=== PATIENT | male | born 1965 | race Caucasian/White ===

== ENCOUNTER 2018-12-29 09:59 | Emergency (ER) | payer BC, OTHER ==
--- NOTE | 2018-12-29 10:33 | ER Document Report ---
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 He did a "tuck and roll "the patient denies hitting his head or neck or have any loss of consciousness complains no head or neck pain. Denies chest pain or shortness of breath denies abdominal pain. Denies back pain. States his right ankle was hurting him. Describes it as severe and swollen. Hurts worse when he tries to bear weight. Denies any other complaints. Past Medical History - Social History Smoking Status: Unknown if Ever Smoked Family History: None Review of Systems - Review of Systems Constitutional: denies: Chills, Fever Cardiovascular: denies: Chest pain Musculoskeletal: Joint pain Skin: denies: Lesions, Rash Neurological/Psychological: denies: Headaches -: Yes All other systems reviewed and negative Physical Exam - Vital signs Vitals: Temp Pulse Resp BP Pulse Ox 97.8 F 43 L 16 126/72 H 96 12/29/18 10:15 12/29/18 10:15 12/29/18 10:15 12/29/18 10:15 12/29/18 10:15 - Notes Notes: GENERAL_APPEARANCE: well_nourished, alert, cooperative VITALS: reviewed, see vital signs table. HEAD: no_swelling\\tenderness on the head. EYES: PERRL, EOMI, conjunctiva_clear. NOSE: no_nasal_discharge. MOUTH: (-)decreased moisture. THROAT: no_tonsilar_inflammation, no_airway_obstruction. no_lymphadenopathy NECK: supple, no_neck_tenderness, (-)thyromegaly. BACK: no_back_tenderness. CHEST_WALL: no_chest_tenderness. LUNGS: no_wheezing, no_rales, no_rhonchi, (-)accessory muscle use, good air exchange bilateral. HEART: normal_rate, normal_rhythm, normal_S1, normal_S2, (-)S3, (-)S4, no_murmur, no_rub. ABDOMEN: normal_BS, soft, no_abd_tenderness, (-)guarding, (-)rebound, no_organomegaly, no_abd_masses. EXTREMITIES: Right ankle is swollen at the lateral malleolus there is no obvious deformity strong dorsalis pedis pulses noted no open wounds. Tender to touch laterally. SKIN: warm, dry, good_color, no_rash. MENTAL_STATUS: speech_clear, oriented_X_3, normal_affect, responds_appropriately to questions. NEURO: Neg Motor or Sensory Deficits on exam, CN 2-12 intact, DTR 2+ symmetric x 4, No cerbellar signs Course - Re-evaluation Re-evalutation: 12/29/18 10:32 53-year-old male who fell off a roof and twisted his ankle. He sustained no other injuries no head or neck injuries no chest or abdominal injuries. Complains of no back pain. We will get an x-ray of the right ankle. I removed his collar is clinically clear. He is neurologically intact without focal deficit. 12/29/18 13:36 Did an x-ray of his back and there is no fractures. His chronic changes he does have a mild calcaneus fracture. There is no open wounds. We will place the patient in a posterior splint make him nonweightbearing. We will have him follow-up with orthopedics outpatient. Will prescribe him some pain medicine and Flexeril. - Vital Signs Vital signs: Temp Pulse Resp BP Pulse Ox 97.8 F 43 L 15 126/72 H 96 12/29/18 10:15 12/29/18 10:15 12/29/18 12:00 12/29/18 10:15 12/29/18 10:15 - Diagnostic Test Radiology reviewed: Reports reviewed Discharge - Discharge Clinical Impression: Fall Qualifiers: Encounter type: initial encounter Qualified Code(s): W19.XXXA - Unspecified fall, initial encounter Calcaneus fracture, right Qualifiers: Encounter type: initial encounter Calcaneus location: unspecified portion of calcaneus Fracture type: closed Condition: Good Disposition: HOME, SELF-CARE Instructions: Fracture Calcaneus ([facility]) Additional Instructions: Nonweightbearing on that foot. Use the crutches. Call for an appointment to be evaluated next week. You may need surgery it is up to the orthopedist that she see. Call for an appointment today Prescriptions: Cyclobenzaprine HCl [Flexeril 10 mg Tablet] 10 mg PO TIDP PRN #30 tab PRN Reason: Oxycodone HCl/Acetaminophen [Percocet 5-325 mg Tablet] 1 - 2 tab PO Q4H PRN #30 tablet PRN Reason: Referrals: RODRIGO SANTOS MD [ACTIVE STAFF] - Follow up as needed HARSHA JORDAN MD [ACTIVE STAFF] - Follow up as needed
--- NOTE | 2018-12-29 10:59 | RADIOLOGY REPORT (SQ) ---
EXAM DESCRIPTION: ANKLE RIGHT COMPLETE COMPLETED DATE/TIME: 12/29/2018 10:41 am REASON FOR STUDY: fall / deformity COMPARISON: None. NUMBER OF VIEWS: Three views. TECHNIQUE: AP, lateral, and oblique radiographic images acquired of the right ankle. LIMITATIONS: None. FINDINGS: MINERALIZATION: Normal. BONES: There is a fracture of the calcaneus. The tibia, fibula, and talus appear to be intact. JOINTS: No effusions. SOFT TISSUES: No soft tissue swelling. No foreign body. OTHER: No other significant finding. IMPRESSION: Calcaneal fracture. TECHNICAL DOCUMENTATION: JOB ID: [id number] [employer]- All Rights Reserved Reading location - IP/workstation name: [email or web address]
[2018-12-29] MEDS ORDERED: ONDANSETRON HCL INJ/PF 4 MG/2 ML SDV IV ONE (11:19)
[2018-12-29] MEDS ORDERED: MORPHINE SULFATE 10 MG/ML INJ IV ONE (11:19)
--- NOTE | 2018-12-29 13:07 | RADIOLOGY REPORT (SQ) ---
EXAM DESCRIPTION: L SPINE WHOLE COMPLETED DATE/TIME: 12/29/2018 12:50 pm REASON FOR STUDY: fell off roof COMPARISON: None. NUMBER OF VIEWS: Five views including obliques. TECHNIQUE: AP, lateral, oblique, and sacral radiographic images acquired of the lumbar spine. LIMITATIONS: None. FINDINGS: MINERALIZATION: Normal. SEGMENTATION: Normal. No transitional anatomy. ALIGNMENT: Grade 1 anterolisthesis of L5 relative to S1 on the basis of probable pars interarticulari s defects, not well characterized on oblique imaging. VERTEBRAE: Maintained height. No fracture or worrisome bone lesion. DISCS: Multilevel disc space narrowing with osteophytes. POSTERIOR ELEMENTS: Facet arthropathy is present. HARDWARE: None in the spine. PARASPINAL SOFT TISSUES: Normal. PELVIS: Intact as visualized. No fractures or worrisome bone lesions. SI joints intact. OTHER: No other significant finding. IMPRESSION: No evidence of acute osseous injury. Background of spondylotic changes with probable L5 pars interarticularis defects resulting in grade 1 anterolisthesis at the lumbosacral junction. TECHNICAL DOCUMENTATION: JOB ID: [id number]- All Rights Reserved Reading location - IP/workstation name: [email or web address]
[2018-12-29 14:47] VITALS: BP 105/61
== END 2018-12-29 14:47 | disposition home or self-care (01) ==
LOC: ER 09:59
DX: S92.001A Unspecified fracture of right calcaneus, initial encounter for closed fracture (principal); W13.2XXA Fall from, out of or through roof, initial encounter; Y93.H3 Activity, building and construction; Y99.0 Civilian activity done for income or pay
CPT/HCPCS: 99283; 96374; 96375; 73610; 72110; J2270; J2405

== ENCOUNTER 2019-01-05 06:06 | Day surgery (SDC) | payer BC ==
[~2019-01-05 06:06] MED LIST: CEFAZOLIN 2 GM/D5W RTU 2 GM/50 ML RTUPB IV PRN
[2019-01-05] MEDS ORDERED: FENTANYL CITRATE INJ/PF 100 MCG/2 ML AMPUL ONE ×3 (06:28→10:25)
[2019-01-05] MEDS ORDERED: MIDAZOLAM 2 MG/2 ML INJ ONE ×2 (06:28→08:26)
[2019-01-05] MEDS ORDERED: ONDANSETRON HCL INJ/PF 4 MG/2 ML SDV ONE ×2 (06:29→21:02)
[2019-01-05] MEDS ORDERED: PROPOFOL INJ 200 MG/20 ML VIAL IV ONE ×2 (06:29→08:26)
[2019-01-05 06:49] LABS: ABSOLUTE EOSINOPHILS # (AUTO) 0.3 10^3/uL (0.0-0.6); ABSOLUTE LYMPHOCYTES (AUTO) 1.6 10^3/uL (0.5-4.7); ABSOLUTE MONOCYTES (AUTO) 0.7 10^3/uL (0.1-1.4); BASOPHILS % (AUTO) 0.4 % (0-2); EOSINOPHILS % (AUTO) 3.3 % (0-6); HEMATOCRIT 45.7 % (37.9-51.0); HEMOGLOBIN 15.8 g/dL (13.5-17.0); LYMPHOCYTES % (AUTO) 18.6 % (13-45); MEAN CORPUSCULAR HEMOGLOBIN 29.7 pg (27.0-33.4); MEAN CORPUSCULAR HGB CONC 34.5 g/dL (32.0-36.0); MEAN CORPUSCULAR VOLUME 86 fl (80-97); MONOCYTES % (AUTO) 8.5 % (3-13); PLATELET COUNT 257 10^3/uL (150-450); RED CELL DISTRIBUTION WIDTH 12.5 % (11.5-14.0); SEGMENTED NEUTROPHILS % (AUTO) 69.2 % (42-78); TOTAL CELLS COUNTED % (AUTO) 100 %; WHITE BLOOD COUNT 8.6 10^3/uL (4.0-10.5)
[2019-01-05] MEDS ORDERED: CEFAZOLIN 2 GM/D5W RTU 2 GM/50 ML RTUPB IV ONE (06:54)
--- NOTE | 2019-01-05 06:57 | RADIOLOGY REPORT (SQ) ---
EXAM DESCRIPTION: XR CHEST 1 VIEW COMPLETED DATE/TME: 01/05/2019 00:00 CLINICAL HISTORY: 53 years Male, PREOP COMPARISON: None. NUMBER OF VIEWS/TECHNIQUE: 1/AP FINDINGS: Adequate lung volume, clear parenchyma, normal cardiac silhouette, and intact bony thorax. IMPRESSION: No acute cardiopulmonary findings.
[2019-01-05 07:00] LABS: ANION GAP 14 (5-19); BLOOD UREA NITROGEN 15 mg/dL (7-20); CALCIUM 9.1 mg/dL (8.4-10.2); CARBON DIOXIDE 24 mmol/L (22-30); CHLORIDE 105 mmol/L (98-107); GLUCOSE 94 mg/dL (75-110); POTASSIUM 3.9 mmol/L (3.6-5.0); SODIUM 142.9 mmol/L (137-145)
[2019-01-05 07:04] LABS: APPEARANCE,URINE SLIGHTLY-CLOUDY; BILIRUBIN,URINE NEGATIVE (NEGATIVE); CALCIUM OXALATE CRYSTALS,URINE FEW /HPF; COLOR,URINE YELLOW; GLUCOSE, URINE NEGATIVE (NEGATIVE); KETONES,URINE NEGATIVE (NEGATIVE); LEUKOCYTE ESTERASE,URINE NEGATIVE (NEGATIVE); NITRITE,URINE NEGATIVE (NEGATIVE); PROTEIN,URINE NEGATIVE (NEGATIVE); URINE SPECIFIC GRAVITY 1.025; UROBILINOGEN,URINE NEGATIVE mg/dL (<2.0)
[2019-01-05] MEDS ORDERED: FAMOTIDINE INJ/PF 20 MG/2 ML SDV IV ONE (07:33)
[2019-01-05] MEDS ORDERED: HYDROMORPHONE HCL INJ/PF 2 MG/ML AMPULE ONE ×2 (08:25→09:49)
[2019-01-05] MEDS ORDERED: ACETAMINOPHEN 1,000 MG/100 ML RTUPB IV ONE (08:26)
[2019-01-05] MEDS ORDERED: BUPIVACAINE HCL 0.5%-EPI 1:200000 INJ/PF 30 ML VIAL ONE (08:50)
[2019-01-05] MEDS ORDERED: TRANEXAMIC ACID INJ/PF 1,000 MG/10 ML SDV IV ONE (09:20)
[2019-01-05] MEDS ORDERED: ONDANSETRON HCL INJ/PF 4 MG/2 ML SDV IV PRN (09:22)
[2019-01-05] MEDS ORDERED: DIPHENHYDRAMINE HCL 50 MG/ML VIAL IV PRN (09:22)
[2019-01-05] MEDS ORDERED: MEPERIDINE HCL/PF INJ 25 MG/1 ML DISP.SYRIN IV PRN (09:22)
[2019-01-05] MEDS ORDERED: PROMETHAZINE HCL INJ 25 MG/1 ML VIAL IV PRN ×2 (09:22)
[2019-01-05] MEDS ORDERED: FENTANYL CITRATE INJ/PF 100 MCG/2 ML AMPUL IV PRN ×2 (09:22)
--- NOTE | 2019-01-05 09:32 | Discharge Summary ---
Discharge Summary (SDC) - Discharge Final Diagnosis: Right calcaneal fracture Date of Surgery: 01/05/19 Discharge Date: 01/05/19 Condition: Good Treatment or Instructions: Touchdown weightbearing restriction right lower extremity Prescriptions: Oxycodone HCl/Acetaminophen [Percocet 5-325 mg Tablet] 1 tab PO Q4H PRN #60 tablet PRN Reason: Referrals: JENNY WAGNER FNP-C [Primary Care Provider] - Discharge Diet: As Tolerated, Regular Respiratory Treatments at Home: Deep Breathing/Coughing Discharge Activity: Balance Activity w/Rest, No tub bath, Other - Elevate right lower extremity on a pillow Adaptive Devices on Discharge: Axillary Crutches Report the Following to Your Physician Immediately: Shortness of Breath, Fever over 101 Degrees, Drainage-Foul Smelling
--- NOTE | 2019-01-05 09:34 | Operative Report ---
Operative Report DATE OF SURGERY: 01/05/19 PREOPERATIVE DIAGNOSIS: Right calcaneal fracture OPERATION: Open reduction internal fixation right calcaneal fracture SURGEON: HARSHA JORDAN ANESTHESIA: GA ESTIMATED BLOOD LOSS: 50 PROCEDURE: With the patient is sloppy left lateral decubitus position on the operating table the right lower extremities prepped and draped in sterile fashion. Limb is elevated for exsanguination tourniquet inflated 280 torr. A curvilinear incision was made over the posterior and distal aspects of the calcaneus laterally. Sharp dissection was carried incision down to the underlying calcaneus and a single soft tissue flap was raised. Pins were placed into the talus for soft tissue retraction. Next a Schanz pin is placed through the plantar surface of the calcaneus and used to reduce the fracture. This reduces not only Boehler's angle but brings in the heel fragments as well. The medial fragments are held using a intraosseous K wire. Next a large Greig titanium lateral calcaneal plate is applied to the lateral surface of the fracture and a combination of cancellus and locking screws were used to secure the reduction. The reduction in the hardware placement checked fluoroscopically both the lateral view as well as a Schulz heel view. There appears to be excellent reconstruction of the subtalar joint. At this point the tourniquet is deflated. Hemostasis obtained with electrocautery. The wound was irrigated using bulb lavage. It subsequent closed in layers with interrupted Vicryl followed by nylon. A posterior plaster splint was applied and the patient's return to the PACU in satisfactory condition.
[2019-01-05] MEDS ORDERED: DEXMEDETOMIDINE INJ 80 MCG/20 ML VIAL IV ONE (09:49)
[2019-01-05] MEDS: FENTANYL CITRATE INJ/PF 100 MCG/2 ML AMPUL IV PRN ×2 (10:25→10:35)
--- NOTE | 2019-01-05 10:57 | EKG REPORT ---
SEVERITY:- ABNORMAL ECG - SINUS RHYTHM LEFT VENTRICULAR HYPERTROPHY : Confirmed by: Kit Leon 05-Jan-2019 10:56:34
--- NOTE | 2019-01-05 11:01 | RADIOLOGY REPORT (SQ) ---
EXAM DESCRIPTION: OS CALCIS/HEEL RIGHT; NO CHG FLUORO COMPLETED DATE/TIME: 01/05/2019 10:14 am REASON FOR STUDY: ORIF RT OS CALSIS ASST W/ FLUORO IN OR S92.001A UNSP FRACTURE OF RIGHT CALCANEUS, INIT FOR CLOS FX COMPARISON: None. FLUOROSCOPY TIME: 0.4 minutes Spot images saved to PACS. TECHNIQUE: Intra-operative images acquired during surgical procedure to evaluate progress. NUMBER OF IMAGES: 2 LIMITATIONS: None. FINDINGS: Fluoroscopy was provided for intraoperative procedure. Please refer to the operative repo rt for further discussion. IMPRESSION: IMAGE(S) OBTAINED DURING PROCEDURE. COMMENT: Quality ID [id number]: Final reports for procedures using fluoroscopy that document radiation exp osure indices, or exposure time and number of fluorographic images (if radiation exposure indices are not available) Please consult full operative report of the attending physician for description of the procedure. TECHNICAL DOCUMENTATION: JOB ID: [id number] [employer]- All Rights Reserved Reading location - IP/workstation name: [email or web address]
--- NOTE | 2019-01-05 11:01 | RADIOLOGY REPORT (SQ) ---
EXAM DESCRIPTION: OS CALCIS/HEEL RIGHT; NO CHG FLUORO COMPLETED DATE/TIME: 01/05/2019 10:14 am REASON FOR STUDY: ORIF RT OS CALSIS ASST W/ FLUORO IN OR S92.001A UNSP FRACTURE OF RIGHT CALCANEUS, INIT FOR CLOS FX COMPARISON: None. FLUOROSCOPY TIME: 0.4 minutes Spot images saved to PACS. TECHNIQUE: Intra-operative images acquired during surgical procedure to evaluate progress. NUMBER OF IMAGES: 2 LIMITATIONS: None. FINDINGS: Fluoroscopy was provided for intraoperative procedure. Please refer to the operative repo rt for further discussion. IMPRESSION: IMAGE(S) OBTAINED DURING PROCEDURE. COMMENT: Quality ID [id number]: Final reports for procedures using fluoroscopy that document radiation exp osure indices, or exposure time and number of fluorographic images (if radiation exposure indices are not available) Please consult full operative report of the attending physician for description of the procedure. TECHNICAL DOCUMENTATION: JOB ID: [id number] [employer]- All Rights Reserved Reading location - IP/workstation name: [email or web address]
[2019-01-05] MEDS ORDERED: OXYCODONE-ACETAMINOPHEN 5-325 MG TABLET ONE (11:24)
[2019-01-05] MEDS ORDERED: OXYCODONE-ACETAMINOPHEN 5-325 MG TABLET PO PRN (11:29)
[2019-01-05 12:53] VITALS: BP 150/86
[2019-01-05] MEDS ORDERED: LIDOCAINE 2% INJ-PF (20 MG/ML) 2 ML AMPUL ONE (21:02)
[2019-01-05] MEDS ORDERED: DEXAMETHASONE SOD PHOSPHATE INJ 4 MG/1 ML VIAL ONE (21:02)
[2019-01-05] MEDS ORDERED: GLYCOPYRROLATE 1 MG/5 ML SYRINGE ONE (21:02)
[2019-01-05] MEDS ORDERED: SUCCINYLCHOLINE CHLORIDE INJ 200 MG/10 ML VIAL ONE (21:02)
[2019-01-05] MEDS ORDERED: KETOROLAC TROMETHAMINE 60 MG/2 ML SDV ONE (21:02)
[2019-01-05] MEDS ORDERED: METOCLOPRAMIDE HCL INJ/PF 10 MG/2 ML SDV ONE (21:02)
== END 2019-01-05 12:40 | disposition home or self-care (01) ==
LOC: OROUT 06:06
PROVIDERS: ATTEND Orthopaedic Surgery
DX: S92.001A Unspecified fracture of right calcaneus, initial encounter for closed fracture (principal); W11.XXXA Fall on and from ladder, initial encounter
CPT/HCPCS: 28415; 36415; 85025; 80048; 81001; 71045; 73650; 93005; 93010; C1713 ×11; C1781; J2250; J3490 ×5; J1100; J1885; J3010; J2765; J1170; J0330; J2405; J2704; S0028; J0690; J0131; 01480